=== PATIENT | male | born 1985 | race Two or more races ===

== ENCOUNTER 2023-11-29 21:19 | Inpatient (IN) | payer MEDICAID, OTHER ==
[~2023-11-29] VITALS: Ht 170.2 cm; Wt 129.7 kg
[2023-11-29 22:40] LABS: Basophils # (auto) 0 10 ^3/uL (0-0.2); Basophils % (auto) 0.4 % (0.0-2.0); Eosinophils # (auto) 0.1 10 ^3/uL (0-0.8); Eosinophils % (auto) 0.6 % (0.0-7.0); Hematocrit 47.7 % (41.0-53.0); Hemoglobin 16.7 g/dL (13.5-17.5); Lymphocytes # (auto) 4.8 10 ^3/uL (0.4-5.4); Mean Corpuscular Hemoglobin 30.1 pg (28.0-32.0); Mean Corpuscular Volume 86.2 fL (80.0-100.0); Monocytes # (auto) 0.8 10 ^3/uL (0-1.3); Monocytes % (auto) 6.2 % (0.0-12.0); Neutrophils # (auto) 6.6 10 ^3/uL (1.6-8.6); Neutrophils % (auto) 53.8 % (37.0-80.0); Nucleated Red Blood Cells % 0.1 %; Red Blood Cells 5.53 10^6/uL (4.5-5.90); Red Cell Distribution Width 13.4 % (11.8-14.3); White Blood Cell 12.3 10^3/uL (4.4-10.8)
[2023-11-29 22:44] LABS: Alanine Aminotransferase 37 U/L (7-40); Albumin 4.9 g/dL (3.2-4.8); Alkaline Phosphatase 123 U/L (46-116); Anion Gap 10 (5-15); Aspartate Aminotransferase 15 U/L (13-40); BUN/Creatinine Ratio 13.8 (10.0-20.0); Blood Urea Nitrogen 12 mg/dL (9-23); Calcium 9.9 mg/dL (8.7-10.4); Carbon Dioxide 23 mmol/L (20-30); Chloride 104 mmol/L (98-107); Glucose 104 mg/dL (74-106); Magnesium 2.1 mg/dL (1.6-2.6); Potassium 3.6 mmol/L (3.5-5.1); Sodium 137 mmol/L (136-145)
[2023-11-29 22:45] LABS: Total Protein 8.1 g/dL (5.7-8.2)
[2023-11-29 23:00] LABS: INR 1.03 (0.9-1.15); Partial Thromboplastin Time 30.4 SEC (24.5-34.5); Prothrombin Time 10.9 sec (9.3-11.8)
[2023-11-30] VITALS (8 sets, daily range): BP systolic 104–137; BP diastolic 67–85; PULSE 77–84; RESP 15–19; TEMP 97.6–98.1; O2SAT 93–98
[2023-11-30] MEDS: cloNIDine HCL 0.1 MG TAB PO ONE (00:16)
[2023-11-30] MEDS: ALPRAZolam 0.5 MG TAB PO ONE (00:16)
[2023-11-30 00:39] LABS: Urine Bacteria None Seen /hpf (None Seen); Urine Blood TRACE /uL (Negative); Urine Clarity Clear (Clear); Urine Color Light-Yellow (Yellow); Urine Protein, UAD Negative (Negative); Urine Urobilinogen Normal (Negative); Urine WBC <1 /hpf (0 - 3); Urine pH 5.5 (5.0-9.0)
[2023-11-30] MEDS: MECLIZINE HCL 25 MG TAB PO ONE (04:50)
[2023-11-30] MEDS ORDERED: hydrALAZINE HCL 20 MG/ML VL IV PRN (05:30)
[2023-11-30] MEDS ORDERED: MECLIZINE HCL 25 MG TAB PO PRN (05:30)
[2023-11-30] MEDS ORDERED: IBUPROFEN 600 MG TAB PO PRN (05:30)
[2023-11-30] MEDS ORDERED: DOCUSATE SOD 100 MG CAP PO PRN (05:30)
[2023-11-30] MEDS ORDERED: NITROGLYCERIN 0.4 MG SL TAB SL PRN (06:00)
[2023-11-30] MEDS ORDERED: MORPHINE SULFATE INJ 2 MG/ml SYRG IV PRN (06:00)
[2023-11-30] MEDS: SODIUM CHLOR 0.9% PF (SALINE LOCK) 10ML VIAL/SYR IV SCH (06:08)
[2023-11-30] MEDS: ONDANSETRON HCL 4 MG/2 ML VIAL IV PRN (06:08)
[2023-11-30 07:42] LABS: Chloride 104 mmol/L (98-107); Sodium 137 mmol/L (136-145)
[2023-11-30 07:43] LABS: Anion Gap 8 (5-15); Calcium 10.1 mg/dL (8.7-10.4); Carbon Dioxide 25 mmol/L (20-30)
[2023-11-30 07:48] LABS: BUN/Creatinine Ratio 12.6 (10.0-20.0); Blood Urea Nitrogen 12 mg/dL (9-23); Glucose 111 mg/dL (74-106)
[2023-11-30 07:57] LABS: Basophils # (auto) 0 10 ^3/uL (0-0.2); Basophils % (auto) 0.4 % (0.0-2.0); Eosinophils # (auto) 0 10 ^3/uL (0-0.8); Eosinophils % (auto) 0.5 % (0.0-7.0); Hematocrit 48.5 % (41.0-53.0); Hemoglobin 16.8 g/dL (13.5-17.5); Mean Corpuscular Hemoglobin 30.2 pg (28.0-32.0); Mean Corpuscular Hgb Conc. 34.6 g/dL (32.0-36.0); Mean Corpuscular Volume 87.2 fL (80.0-100.0); Monocytes # (auto) 0.7 10 ^3/uL (0-1.3); Monocytes % (auto) 7.3 % (0.0-12.0); Neutrophils # (auto) 6.2 10 ^3/uL (1.6-8.6); Neutrophils % (auto) 61.8 % (37.0-80.0); Nucleated Red Blood Cells % 0.1 %; Red Blood Cells 5.56 10^6/uL (4.5-5.90); Red Cell Distribution Width 13.5 % (11.8-14.3); White Blood Cell 10.1 10^3/uL (4.4-10.8)
[2023-11-30] MEDS ORDERED: PANTOPRAZOLE 40 MG/10 ML VIAL INJ IV SCH (10:00)
[2023-11-30 12:14] LABS: Amphetamine Screen, Urine Neg (NEGATIVE); Barbiturate Scree,Urine Neg (NEGATIVE); Benzodiazephine Screen, Urine Neg (NEGATIVE)
[2023-11-30 12:15] LABS: Cocaine Screen, Urine Neg (NEGATIVE); Opiate Scree,Urine Neg (NEGATIVE)
[2023-11-30 12:16] LABS: Cannabinoid Screen, Urine Pos (NEGATIVE); Phencyclidine Screen, Urine Neg (NEGATIVE)
[2023-11-30] MEDS ORDERED: MECL12.586 PO (12:23)
[2023-11-30 13:28] LABS: Erythrocyte Sedimentation Rate 6 mm/hr (0-20)
[2023-11-30 15:47] LABS: Triglycerides 257 mg/dL (< 150)
[2023-11-30 15:48] LABS: LDL Cholesterol 127 mg/dL (< 100)
[2023-11-30 15:49] LABS: Cholesterol 197 mg/dL (< 200); HDL Cholesterol 38 mg/dL (40-59)
[2023-11-30] MEDS: ATORVASTATIN 20 MG TAB PO SCH (21:07)
[2023-11-30] MEDS: PANTOPRAZOLE 40 MG/10 ML VIAL INJ IV SCH (21:37)
[2023-12-01 05:00] VITALS: BP 128/83; PULSE 72; RESP 19; TEMP 97.9; O2SAT 95
[2023-12-01 06:16] LABS: Basophils # (auto) 0.1 10 ^3/uL (0-0.2); Basophils % (auto) 0.5 % (0.0-2.0); Eosinophils # (auto) 0.1 10 ^3/uL (0-0.8); Eosinophils % (auto) 0.9 % (0.0-7.0); Hematocrit 44.5 % (41.0-53.0); Hemoglobin 15.9 g/dL (13.5-17.5); Lymphocytes # (auto) 4.1 10 ^3/uL (0.4-5.4); Lymphocytes % (auto) 40.1 % (10.0-50.0); Mean Corpuscular Hgb Conc. 35.7 g/dL (32.0-36.0); Mean Corpuscular Volume 86.7 fL (80.0-100.0); Monocytes # (auto) 0.7 10 ^3/uL (0-1.3); Monocytes % (auto) 7.2 % (0.0-12.0); Neutrophils # (auto) 5.3 10 ^3/uL (1.6-8.6); Neutrophils % (auto) 51.3 % (37.0-80.0); Nucleated Red Blood Cells % 0.1 %; Red Blood Cells 5.13 10^6/uL (4.5-5.90); Red Cell Distribution Width 13.6 % (11.8-14.3); White Blood Cell 10.3 10^3/uL (4.4-10.8)
[2023-12-01 06:29] LABS: Alanine Aminotransferase 32 U/L (7-40); Alkaline Phosphatase 110 U/L (46-116); Anion Gap 10 (5-15); BUN/Creatinine Ratio 11.4 (10.0-20.0); Blood Urea Nitrogen 10 mg/dL (9-23); Calcium 9.7 mg/dL (8.7-10.4); Carbon Dioxide 22 mmol/L (20-30); Chloride 106 mmol/L (98-107); Glucose 102 mg/dL (74-106); Potassium 4.1 mmol/L (3.5-5.1); Sodium 138 mmol/L (136-145)
[2023-12-01 06:30] LABS: Albumin 4.4 g/dL (3.2-4.8); Aspartate Aminotransferase 10 U/L (13-40)
[2023-12-01 06:31] LABS: Total Protein 7.3 g/dL (5.7-8.2)
[2023-12-01 08:00] VITALS: PULSE 65; RESP 17; O2SAT 96
[2023-12-01 08:41] VITALS: BP 131/80; PULSE 70; RESP 18; TEMP 98.1; O2SAT 96
[2023-12-01 12:43] VITALS: BP 125/76; PULSE 75; RESP 19; TEMP 98.1; O2SAT 95
[2023-12-01] MEDS ORDERED: [UNRECOGNIZED DRUG - CODE] XX (13:01)
[2023-12-01] MEDS ORDERED: ATOR40TA52 PO (13:01)
[2023-12-01 13:46] VITALS: BP 141/92; PULSE 75; RESP 19; TEMP 36.7; O2SAT 95
== END 2023-12-01 14:00 | disposition home or self-care (01) | DRG 199 ==
LOC: ER 21:19 → TELE 11-30 05:54 → TELE-WESTW 11-30 09:59
PROVIDERS: ADMIT Nurse Practitioner Family; ATTEND Nurse Practitioner Family
DX: I16.0 Hypertensive urgency (principal); D72.829 Elevated white blood cell count, unspecified; E66.9 Obesity, unspecified; E78.5 Hyperlipidemia, unspecified; F41.9 Anxiety disorder, unspecified; I10 Essential (primary) hypertension; Z88.6 Allergy status to analgesic agent; Z68.41 Body mass index [BMI] 40.0-44.9, adult; Z79.899 Other long term (current) drug therapy; F12.929 Cannabis use, unspecified with intoxication, unspecified
CPT/HCPCS: 36415; 71045; 80048; 80053; 80061; 80307; 81001; 82962; 83036; 83735; 83880; 84443; 84484; 85025; 85379; 85610; 85652; 85730; 86141; 93005; 93306; 93971; 96374; 96375; G0378; J2405; J2470

== ENCOUNTER 2024-04-17 12:56 | Inpatient (IN) | payer MEDICAID ==
[~2024-04-17] VITALS: Ht 172.7 cm; Wt 136.0 kg
[~2024-04-17 12:56] MED LIST: ATOR40TA52 PO; MECL12.586 PO; [UNRECOGNIZED DRUG - CODE] XX
--- NOTE | 2024-04-17 13:08 | ED.PDOC ---
HPI Comments 38 y.o male with PMH of HTN, presents to the ED via EMS for a chief complaint of intermittent palpitations that presented 2 weeks ago. Patient had a PCP's appointment this morning, had an EKG done which showed inverted T waves 1 and 2 and 911 was activated. Patient reports palpitations last for 10 minutes, subside on their own and have no associating symptoms. Patient denies any tobacco or alcohol use but does smoke marijuana. Time Seen by MD: 12:58 Primary Care Provider: JERRY Newton Notes: Nurses Notes, Hearse Driver Notes, Medications, Allergies Allergies: Coded Allergies: Acetaminophen (Verified Allergy, Unknown, 03/03/15) Hydrocodone (Verified Allergy, Unknown, 03/03/15) Home Meds Active Scripts Meclizine Hcl (Meclizine Hcl) 12.5 Mg Tab, 1 TAB PO TID PRN for 14 Days, #42 TAB 3 Refills Prov:DOMENICA GUEVARA MD 03/24/24 [facility] [place] Devices (Adult Blood Pressure Cuff) Cuff/Lg Kit, LG XX DAILY, #1 Prov:INGE JACOBO NP 12/01/23 Atorvastatin Calcium (ATORVASTATIN CALCIUM) 40 Mg Tab, 1 TAB PO QPM for 30 Days, #30 TAB 3 Refills Prov:INGE JACOBO NP 12/01/23 Reported Medications Meclizine Hcl (Meclizine Hcl) 12.5 Mg Tab, 25 MG PO Q6HPRN PRN for DIZZINESS, TAB 11/30/23 Information Source: Patient, Emergency Med Personnel Mode of Arrival: EMS Severity: Moderate Timing: Weeks (2) Duration: Intermittent Prehospital treatment: 12 Lead EKG, Manager Dairy Onset: At Rest Cardiac Risk Factors: HTN PE Risk Factors: None History of: None Modifying Factors: Nothing Associated Signs and Symptoms: Palpitations Past Medical History PAST MEDICAL HISTORY: High Lipids, HTN Surgical History: Denies all surgeries Family History Family History: Unknown Social History Smoker: Non-Smoker Alcohol: Denies ETOH Use Drugs: Denies Drug Use Lives In: Home Constitutional: denies: chills, diaphoresis, fatigue, fever, malaise, sweats, weakness, others EENTM: denies: blurred vision, double vision, ear bleeding, ear discharge, ear drainage, ear pain, ear ringing, eye pain, eye redness, hearing loss, mouth pain, mouth swelling, nasal discharge, nose bleeding, nose congestion, nose pain, photophobia, tearing, throat pain, throat swelling, voice changes, others Respiratory: denies: cough, hemoptysis, orthopnea, SOB at rest, shortness of breath, SOB with excertion, stridor, wheezing, others Cardiovascular: reports: palpitations; denies: chest pain, dizzy spells, diaphoresis, Dyspnea on exertion, edema, irregular heart beat, left arm pain, lightheadedness, PND, syncope, others Gastrointestinal: denies: abdomen distended, abdominal pain, blood streaked bowels, constipated, diarrhea, dysphagia, difficulty swallowing, hematemesis, melena, nausea, poor appetite, poor fluid intake, rectal bleeding, rectal pain, vomiting, others Genitourinary: denies: burning, dysuria, flank pain, frequency, hematuria, incontinence, penile discharge, penile sore, pain, testicle pain, testicle swelling, urgency, others Neurological: denies: dizziness, fainting, headache, left sided numbness, left sided weakness, numbness, paresthesia, pre-existing deficit, right sided numbness, right sided weakness, seizure, speech problems, tingling, tremors, w eakness, others Musculoskeletal: denies: back pain, gout, joint pain, joint swelling, muscle pain, muscle stiffness, neck pain, others Integumetry: denies: bruises, change in color, change in hair/nails, dryness, laceration, lesions, lumps, rash, wounds, others Allergic/Immunocompromised: denies: Difficulty Healing, Frequent Infections, Hives, Itching, others Hematologic/Lymphatic: denies: anemia, blood clots, easy bleeding, easy bruising, swollen glands, others Endocrine: denies: excessive hunger, excessive sweating, excessive thirst, excessive urination, flushing, intolerance to cold, intolerance to heat, unexplained weight gain, unexplained weight loss, others Psychiatric: denies: anxiety, bipolar disorder, depression, hopeless, panic disorder, schizophrenia, sleepless, suicidal, others All Other Systems: Reviewed and Negative Physical Exam General Appearance: Moderate Distress HEENT: Normal ENT Inspection, Pharynx Normal, TMs Normal Neck: Full Range of Motion, Non-Tender, Normal, Normal Inspection Respiratory: Chest Non-Tender, Lungs Clear, No Accessory Muscle Use, No Respiratory Distress, Normal Breath Sounds Cardiovascular: No Edema, No JVD, No Murmur, No Gallop, Normal Peripheral Pulses, Regular Rate/Rhythm Breast Exam: Deferred Gastrointestinal: No Organomegaly, Non Tender, No Pulsatile Mass, Normal Bowel Sounds, Soft Genitalia: Deferred Pelvic: Deferred Rectal: Deferred Extremities: No calf tenderness, Normal capillary refill, Normal inspection, Normal range of motion, Non-tender, No pedal edema Musculoskeletal : Apperance: Normal Neurologic: Alert, tool die maker II-XII nml as Tested, No Motor Deficits, Normal Affect, Normal Mood, No Sensory Deficits Cerebellar Function: NOT DONE Reflexes: NOT DONE Skin: Dry, Normal Color, Warm Peripheral Pulses: 3+ Radial (R), 3+ Radial (L) Lymphatic: No Adenopathy Was a procedure done? Was a procedure done?: No CP Differential Dx Differential Diagnosis: A-fib, A-Flutter, Angina, Anxiety / Panic Attack, Atrial Dysrhythmia, Electrolyte Disorder, Sinus Tachycardia X-Ray, Labs, Meds, VS Patient alert. Complaining of chest discomfort. Vitals stable. Answering all questions. Has been seen in this ER for similar symptoms three weeks ago. Was referred from primary care physician office for possible EKG changes. EKG reviewed here does not show any acute changes. Was given aspirin. Possibly will need stress test. Reviewed his previous visit. Explained to the patient. Continue cardiac monitoring. Time of 1ST Reevaluation: 13:07 Reevaluation 1ST: Unchanged Patient Education/Counseling: Diagnosis, Treatment, Prognosis Family Education/Counseling: No Family Present Additional Information The following tests were ordered, and results were reviewed by me: Labs, XY, EKG Additional Information was gathered from interviewing the following independent historians: Hearse Driver I reviewed and agreed with the following test results read by other providers: X-Ray I discussed treatment and results with medical personnel and patient Departure 1 Departure Time of Disposition: 13:16 Impression: Primary Impression: Chest pain of unknown etiology Disposition: ADMITTED INPATIENT Admit to: Med Surg Condition: Guarded Critical Care Note Critical Care Time?: Yes (45 min-critical care time only) Stability Stability form required: No Heart Score Heart Score: Heart Score Response (Comments) Value History Slightly Suspicious 0 EKG Normal 0 Age <45 0 Risk Factors 1 or 2 risk factors 1 Troponin Normal limit 0 Total 1 I personally scribed for MIKE HUTCHISON MD ([email or web address]) on 04/17/24 at 13:08. Electronically submitted by Silvia Dee ([facility]). MIKE HUTCHISON MD Apr 17, 2024 13:08
[2024-04-17] MEDS: ASPirin 325 MG TAB PO ONE (13:31)
[2024-04-17 14:11] LABS: Basophils # (auto) 0 10 ^3/uL (0-0.2); Basophils % (auto) 0.5 % (0.0-2.0); Eosinophils # (auto) 0 10 ^3/uL (0-0.8); Eosinophils % (auto) 0.3 % (0.0-7.0); Hematocrit 50.2 % (41.0-53.0); Hemoglobin 16.8 g/dL (13.5-17.5); Lymphocytes # (auto) 2.6 10 ^3/uL (0.4-5.4); Lymphocytes % (auto) 25.4 % (10.0-50.0); Mean Corpuscular Hemoglobin 29.2 pg (28.0-32.0); Mean Corpuscular Hgb Conc. 33.4 g/dL (32.0-36.0); Mean Corpuscular Volume 87.6 fL (80.0-100.0); Monocytes # (auto) 0.5 10 ^3/uL (0-1.3); Monocytes % (auto) 4.8 % (0.0-12.0); Neutrophils # (auto) 7.1 10 ^3/uL (1.6-8.6); Platelet Count (auto) 198 10^3/uL (140-450); Red Blood Cells 5.73 10^6/uL (4.5-5.90); Red Cell Distribution Width 13.6 % (11.8-14.3); White Blood Cell 10.4 10^3/uL (4.4-10.8)
[2024-04-17 14:14] LABS: Chloride 107 mmol/L (98-107); Potassium 4.5 mmol/L (3.5-5.1); Sodium 141 mmol/L (136-145)
[2024-04-17 14:15] LABS: Anion Gap 6 (5-15); Carbon Dioxide 28 mmol/L (20-31)
[2024-04-17 14:16] LABS: Calcium 10.1 mg/dL (8.7-10.4)
[2024-04-17 14:21] LABS: BUN/Creatinine Ratio 12.8 (10.0-20.0); Blood Urea Nitrogen 11 mg/dL (9-23); Glucose 95 mg/dL (74-106)
[2024-04-17] MEDS ORDERED: NITROGLYCERIN 0.4 MG SL TAB SL PRN (18:15)
[2024-04-17] MEDS ORDERED: MORPHINE SULFATE INJ 2 MG/ml SYRG IV PRN ×2 (18:15)
[2024-04-17 18:59] VITALS: BP 156/92; PULSE 89; RESP 18; TEMP 98.5; O2SAT 98
--- NOTE | 2024-04-18 17:28 | DVHHP2 ---
History of Present Illness Reason for Visit: Intermittent palpitation for last two weeks History of Present Illness 38-year-old male with a known history of hypertension, dyslipidemia who was sent by PCP follow up normal EKG. Patient has complained of intermittent palpitation worsening for last two weeks eventually was seen by his primary physician who did the EKG. EKG showed some abnormal T-waves. Eventually patient was transferred to [facility]. Patient's troponins x3 were negative. Cardiovascular: HTN, hyperipidemia Past Surgical History: None Family History: None Smoke: No ALCOHOL: none Drugs: None Review of Systems Allergies: Coded Allergies: Acetaminophen (Verified Allergy, Unknown, 03/03/15) Hydrocodone (Verified Allergy, Unknown, 03/03/15) Exam Vital Signs Vital Signs Date Time Temp Pulse Resp B/P (MAP) Pulse Ox O2 Delivery O2 Flow Rate FiO2 04/17/24 18:59 98.5 89 18 156/92 (113) 98 98.5 04/17/24 13:25 Room Air Labs/Xrays Labs Test 04/17/24 16:30 04/17/24 13:39 Range/Units Troponin I High Sensitivity < 3 L </=54 ng/L White Blood Count 10.4 4.4-10.8 10^3/uL Red Blood Count 5.73 4.5-5.90 10^6/uL Hemoglobin 16.8 13.5-17.5 g/dL Hematocrit 50.2 41.0-53.0 % Mean Corpuscular Volume 87.6 80.0-100.0 fL Mean Corpuscular Hemoglobin 29.2 28.0-32.0 pg Mean Corpuscular Hemoglobin Concent 33.4 32.0-36.0 g/dL Red Cell Distribution Width 13.6 11.8-14.3 % Platelet Count 198 140-450 10^3/uL Mean Platelet Volume 9.7 6.9-10.8 fL Neutrophils (%) (Auto) 69.0 37.0-80.0 % Lymphocytes (%) (Auto) 25.4 10.0-50.0 % Monocytes (%) (Auto) 4.8 0.0-12.0 % Eosinophils (%) (Auto) 0.3 0.0-7.0 % Basophils (%) (Auto) 0.5 0.0-2.0 % Neutrophils # (Auto) 7.1 1.6-8.6 10 ^3/uL Lymphocytes # (Auto) 2.6 0.4-5.4 10 ^3/uL Monocytes # (Auto) 0.5 0-1.3 10 ^3/uL Eosinophils # (Auto) 0 0-0.8 10 ^3/uL Basophils # (Auto) 0 0-0.2 10 ^3/uL Nucleated Red Blood Cells 0.0 % Sodium Level 141 136-145 mmol/L Potassium Level 4.5 3.5-5.1 mmol/L Chloride Level 107 98-107 mmol/L Carbon Dioxide Level 28 20-31 mmol/L Anion Gap 6 5-15 Blood Urea Nitrogen 11 9-23 mg/dL Creatinine 0.86 0.700-1.30 mg/dL Glomerular Filtration Rate Calc 115 >90 mL/min BUN/Creatinine Ratio 12.8 10.0-20.0 Serum Glucose 95 74-106 mg/dL Calcium Level 10.1 8.7-10.4 mg/dL Assessment/Plan Assessment/Plan A 38-year-old male with a known history of hypertension, dyslipidemia initially admitted to the hospital with a abnormal EKG found to have 1. Chest pain rule out IN 2. Hypertension 3. Dyslipidemia -admitted to telemetry, 2D echo cardiology consultation. Plan discussed with: Other (Plan of care discussed with the ER physician.) My Orders Orders - MATTHEW GARCIA MD Procedure Category Date Status Time Admit ADMIT 04/17/24 Transmitted 18:10 Code Status CODE 04/17/24 Transmitted 18:10 Oxygen By Nasal RT 04/17/24 Transmitted Cannula 18:10 * Cardiology Consult CONS 04/17/24 Transmitted 18:10 Problem List: (1) Chest pain of unknown etiology (2) Hypertension Date of Service: Apr 17, 2024 Billing Provider: MATTHEW GARCIA MD Common Visit Codes: NOT BILLABLE MATTHEW GARCIA MD Apr 18, 2024 17:28
--- NOTE | 2024-04-18 17:29 | DVHDS2 ---
Discharge Summary Date of Admission Apr 17, 2024 at 18:10 Date of Discharge: Apr 17, 2024 Labs/Diagnostic Data: Laboratory Results Test 04/17/24 16:30 04/17/24 13:39 Troponin I High Sensitivity < 3 ng/L (</=54) White Blood Count 10.4 10^3/uL (4.4-10.8) Red Blood Count 5.73 10^6/uL (4.5-5.90) Hemoglobin 16.8 g/dL (13.5-17.5) Hematocrit 50.2 % (41.0-53.0) Mean Corpuscular Volume 87.6 fL (80.0-100.0) Mean Corpuscular Hemoglobin 29.2 pg (28.0-32.0) Mean Corpuscular Hemoglobin Concent 33.4 g/dL (32.0-36.0) Red Cell Distribution Width 13.6 % (11.8-14.3) Platelet Count 198 10^3/uL (140-450) Mean Platelet Volume 9.7 fL (6.9-10.8) Neutrophils (%) (Auto) 69.0 % (37.0-80.0) Lymphocytes (%) (Auto) 25.4 % (10.0-50.0) Monocytes (%) (Auto) 4.8 % (0.0-12.0) Eosinophils (%) (Auto) 0.3 % (0.0-7.0) Basophils (%) (Auto) 0.5 % (0.0-2.0) Neutrophils # (Auto) 7.1 10 ^3/uL (1.6-8.6) Lymphocytes # (Auto) 2.6 10 ^3/uL (0.4-5.4) Monocytes # (Auto) 0.5 10 ^3/uL (0-1.3) Eosinophils # (Auto) 0 10 ^3/uL (0-0.8) Basophils # (Auto) 0 10 ^3/uL (0-0.2) Nucleated Red Blood Cells 0.0 % Sodium Level 141 mmol/L (136-145) Potassium Level 4.5 mmol/L (3.5-5.1) Chloride Level 107 mmol/L (98-107) Carbon Dioxide Level 28 mmol/L (20-31) Anion Gap 6 (5-15) Blood Urea Nitrogen 11 mg/dL (9-23) Creatinine 0.86 mg/dL (0.700-1.30) Glomerular Filtration Rate Calc 115 mL/min (>90) BUN/Creatinine Ratio 12.8 (10.0-20.0) Serum Glucose 95 mg/dL (74-106) Calcium Level 10.1 mg/dL (8.7-10.4) Other Laboratory Tests 04/17/24 13:39 Brief Hx & Hospital Course: 38-year-old male with a known history of hypertension, dyslipidemia initially was sent by PCP for abnormal EKG. Patient's troponin were negative. 2D echo and cardiology consult was pending. Patient left against medical advice. Condition at Discharge: Undetermined Final Diagnosis/Problems List Chest pain rule out CO Hypertension Dyslipidemia Secondary Diagnosis: Patient left against medical advice. Discharge Disposition: AMA SNF Discharge Will this Physician continue t: No Discharge Statement: "Patient was advised to return to the ER or call 911 if any headaches, dizziness, shortness of breath, chest pain, abdominal pain, bleeding, fevers, or worsening of medical condition. Patient was counseled about treatment plan, medications, possible side effects, patientverbalized understanding. All questions were answered to the best of my ability. This discharge took greater then 30 minutes in planning, reviewing documentation, counseling the patient, and discussing with other team members." ASSESSMENT ASSESSMENT Assessment Date of Service: Apr 17, 2024 Billing Provider: MATTHEW GARCIA MD Common Visit Codes: NOT BILLABLE MATTHEW GARCIA MD Apr 18, 2024 17:29
--- NOTE | 2024-04-20 15:17 | ECG ---
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
== END 2024-04-17 19:05 | disposition left against medical advice (07) | DRG 203 ==
LOC: EDBD 12:56 → ER 12:56 → TELE 18:10
PROVIDERS: ADMIT Internal Medicine; ATTEND Internal Medicine
DX: M94.0 Chondrocostal junction syndrome [Tietze] (principal); E78.5 Hyperlipidemia, unspecified; I10 Essential (primary) hypertension; Z53.29 Procedure and treatment not carried out because of patient's decision for other reasons; Z88.5 Allergy status to narcotic agent; Z88.6 Allergy status to analgesic agent
CPT/HCPCS: 36415; 80048; 84484; 85025; 93005; 99291; G0378